=== PATIENT | male | born 1995 | race Caucasian/White ===

== ENCOUNTER 2016-10-26 20:21 | Emergency (ER) | payer OTHER ==
[~2016-10-26] VITALS: Ht 180.3 cm; Wt 61.2 kg
[~2016-10-26 20:21] MED LIST: CITALOPRAM HYDR10 MG PO
--- NOTE | 2016-10-26 20:52 | ED SKIN/ALLERGY COMPLAINT ---
History of Present Illness General Chief Complaint: Allergy Symptoms Stated Complaint: BIBA, ALLERGIC REACTION Source: patient, family, old records Exam Limitations: no limitations Vital Signs & Intake/Output Vital Signs & Intake/Output Vital Signs Date Time Temp Pulse Resp B/P B/P Pulse O2 O2 Flow FiO2 Mean Ox Delivery Rate 10/26 2145 98.1 68 18 118/62 100 Room Air 10/26 2054 97.5 63 18 113/58 99 Allergies Coded Allergies: shrimp (HIVES, ITCHY, HOT AND BURNING, VOMITING 10/26/16) Reconcile Medications Famotidine (Pepcid) 20 MG TABLET 1 TAB PO BID urticaria Prednisone 20 MG TABLET 1 TAB PO BID urticaria Triage Note: PT BIBA AFTER POSSIBLE ALLERGIC REACTION AFTER EATING SHELLFISH/ PER FAMILY REPORT, PT BEGAN TO FEEL ITCHY AND HAVE HIVES APPROXIMATELY 30 MINUTES AFTER EATING SHRIMP. PT WAS BROUGHT TO [facility] BY FAMILY AND WHILE THERE, PT BEGAN TO VOMIT. PER PT, HIVES AND ITCHING HAVE LESSENED. NO SOB OR TIGHTENING IN THROAT. PT IN NAD. FAMILY AT BEDSIDE Triage Nurses Notes Reviewed? yes Onset: Just prior to arrival Duration: hour(s):, better, constant, continues in ED Timing: recent history Severity: moderate, severe Location: generalized Possible Factors: foods Modifying Factors: Improves With: antihistamine, scratching. Associated Symptoms: change in skin texture, flushing, rash HPI: One and 1 half hours prior to onset of symptoms patient ate fried shrimp with Cajun sauce then had progressive generalized itchy rash. He took 2 Benadryl with continued symptoms and went to walk in center who referred him here. When he was a complained of nausea. He denies fever chills chest pain cough shortness of breath headache dysuria abdominal pain vomiting diarrhea headache. Past History Travel History Traveled to [place] past 21 day No Medical History Any Pertinent Medical History? none Surgical History Surgical History: non-contributory Psychosocial History What is your primary language Belarusian Tobacco Use: Never used Family History Hx Contributory? No Review of Systems Review of Systems Constitutional: Reports: no symptoms. EENTM: Reports: no symptoms. Respiratory: Reports: no symptoms. Cardiovascular: Reports: no symptoms. GI: Reports: see HPI, nausea. Genitourinary: Reports: no symptoms. Musculoskeletal: Reports: no symptoms. Skin: Reports: see HPI, rash. Neurological/Psychological: Reports: no symptoms. Hematologic/Endocrine: Reports: no symptoms. Immunologic/Allergic: Reports: no symptoms. All Other Systems: Reviewed and Negative Physical Exam Physical Exam General Appearance: well developed/nourished, mild distress Head: atraumatic Eyes: Bilateral: PERRL, EOMI. Ears, Nose, Throat: normal pharynx, normal ENT inspection, hearing grossly normal Neck: normal inspection, supple Respiratory: normal breath sounds Cardiovascular: regular rate/rhythm Peripheral Pulses: 4+ carotid (R), 4+ carotid (L) Gastrointestinal: soft, non-tender Back: normal inspection, normal range of motion Extremities: normal inspection, normal range of motion, no edema Neurologic/Psych: awake, alert, oriented x 3, normal mood/affect Reflexes: 2+: bicep (R), bicep (L). Skin: intact, rash Skin Problem Location: generalized Skin Problem Character: patchy, rash, urticarial Lymphatic: no anterior cervical carmen Progress Differential Diagnosis: abscess/cellulitis, allergic reaction, anaphylaxis, urticaria Plan of Care: Current Medications Sig/Joyce Start time Last Medication Dose Stop Time Status Admin Sodium Chloride 1,000 ML BOLUS ONE 10/26 2199 UNVr (Normal Saline 0.9%) 10/26 2258 Departure Departure Time of Disposition: 2203 Disposition: HOME OR SELF CARE Condition: Stable Clinical Impression Primary Impression: Shrimp allergy Secondary Impressions: Urticaria due to food allergy Referrals: BRIGHT CLOUD,NICHO Elder (PCP/Family) Additional Instructions: Benadryl 1-2 tabs every 6 hours for itchy rash Departure Forms: Customer Survey General Discharge Information RELEASE- WORK Prescriptions: Current Visit Scripts Prednisone 1 TAB PO BID #10 TAB Famotidine (Pepcid) 1 TAB PO BID #10 TAB
[2016-10-26] MEDS ORDERED: PREDNISONE20 M1 PO (21:09)
[2016-10-26] MEDS ORDERED: PEPCID20 M1 PO (21:09)
[2016-10-26 21:46] VITALS: BP 118/62
== END 2016-10-26 22:10 ==
LOC: ERH 20:21
DX: T78.1XXA Other adverse food reactions, not elsewhere classified, initial encounter (principal); L50.0 Allergic urticaria
CPT/HCPCS: 96374; 96375; J2930